=== PATIENT | male | born 1940 | race Caucasian/White ===

== ENCOUNTER 2018-03-03 00:06 | Inpatient (IN) | payer OTHER ==
[2018-03-03] VITALS (8 sets, daily range): BP systolic 121–151; BP diastolic 59–86
[~2018-03-03] VITALS: Ht 175.3 cm; Wt 96.2 kg
--- NOTE | ~2018-03-03 | EKG ---
[address] [address] ELECTROCARDIOGRAM REPORT Name: MILLICENT TREVIÑO Room #: 355-P ADM IN M.R.#: [id number] Admission: 03/03/18 Attend Phys: Mac Alexis DO Discharge: Date of : 40 Report #: [id number] THIS REPORT FOR: //name// [facility] ED Test Date: 2018-03-03 Test Time: 00:18:50 Pat Name: MILLICENT TREVIÑO Department: Room: [facility] Gender: M Ivory Polisher: JARETT : 1940 Requested By: Lindsey Gonzalez Order Number: [id number] MD: Demarco Page Measurements Intervals [place] Rate: 115 P: 1 [place]: 117 QRS: 50 QRSD: 98 T: -25 QT: 321 QTc: 444 Interpretive Statements Sinus tachycardia Probable left atrial enlargement Compared to ECG 07/23/2012 15:04:41 Sinus rhythm no longer present Electronically Signed On 03-03-2018 12:13:24 CDT by Demarco Page [email or web address] <ELECTRONICALLY SIGNED> By: Demarco Page MD 03/03/18 1213 0018 0018 Demarco Page MD /RICHY
--- NOTE | ~2018-03-03 | 2DMMODE ---
[facility] [address] [place] [place] [address] 2 D/M-MODE ECHOCARDIOGRAM Name: MILLICENT TREVIÑO Room #: 355-P [facility] IN ..#: [id number] Admission: 03/03/18 Attend Phys: Mac Alexis, Discharge: Date of : 40 Date of Service: 03/05/18 0950 Report #: [id number] THIS REPORT FOR: //name// APPROVED REPORT Study performed: 03/05/2018 08:05:40 EXAM: Comprehensive 2D, Doppler, and color-flow Echocardiogram Patient Location: Bedside Room #: 355 Status: routine BSA: 2.12 HR: 68 bpm BP: 134/62 mmHg Other Information Study Quality: Adequate Indications Diabetes Dizziness and Vertigo 2D Dimensions RVDd: 42.88 mm LVEF(%): 68.01 (>50%) IVSd: 14.81 (7-11mm) LVOT Diam: 23.42 (18-24mm) LVDd: 40.09 mm PWd: 14.91 (7-11mm) Ascending Ao: 35.11 (22-36mm) LVDs: 25.09 (25-40mm) Aortic Root: 31.23 mm IVC: 16.00 mm Boothe's LVEF: 68.01 % Volumes Left Atrial Volume (Systole) Single Plane 4CH: 60.69 mL Single Plane 2CH: 76.53 mL LA ESV Index: 36.00 mL/m2 Aortic Valve AoV Peak Gil.: 2.83 m/s AO Peak Gr.: 32.00 mmHg LVOT Max P.98 mmHg AO Mean Gr.: 17.65 mmHg LVOT Mean P.72 mmHg AO V2 Mean: 1.96 m/s LVOT Max V: 1.22 m/s AO V2 VTI: 67.08 cm LVOT Mean V: 0.75 m/s SHAUNA (VTI): 1.94 cm2 LVOT V1 VTI: 30.16 cm SHAUNA Vmax: 1.86 cm2 AI Vmax: 3.71 m/s SV (LVOT): 129.88 mL [facility] [place] [address] 2 D/M-MODE ECHOCARDIOGRAM Name: MILLICENT TREVIÑO Room #: 355-P [facility] IN [facility]#: [id number] Admission: 03/03/18 Attend Phys: Mac Alexis, Discharge: Date of : 40 Date of Service: 03/05/18 0950 Report #: [id number] AI Grimes: 2.69 m/s2 AI PHT: 399.99 ms Mitral Valve E/A Ratio: 0.8 MV Decel. Time: 207.90 ms MV E Max Gil.: 0.63 m/s MV A Gil.: 0.79 m/s MV PHT: 60.29 ms IVRT: 103.81 ms Pulmonary Valve PV Peak Gil.: 0.95 m/s PV Peak Gr.: 3.60 mmHg Pulmonary Vein P Vein S: 0.63 m/s P Vein A: 0.30 m/s P Vein D: 0.39 m/s P Vein A Dur.: 124.6 msec P Vein S/D Ratio: 1.62 Tricuspid Valve TR Peak Gil.: 2.48 m/s RAP Estimate: 5.00 mmHg TR Peak Gr.: 24.52 mmHg PA Pressure: 30.00 mmHg Left Ventricle The left ventricle is normal size. There is normal LV segmental wall motion. Mild to moderate concentric left ventricular hypertrophy. The left ventricular systolic function is normal. The left ventricular ejection fraction is within the normal range. LVEF is 60-65%. Mild diastolic dysfunction is present (impaired relaxation pattern). Right Ventricle The right ventricle is normal size. The right ventricular systolic function is normal. Atria The left atrium size is normal. The right atrium size is normal. Aortic Valve Aortic valve is mildly calcified, trileaflet, mildly stenotic Trace to mild aortic regurgitation. There is mild valvular aortic stenosis. Calculated aortic valve area is 1.9 cm2 with maximum pressure gradient of 32 mmHg and mean pressure gradient of 18 [place] [address] 2 D/M-MODE ECHOCARDIOGRAM Name: MILLICENT TREVIÑO Room #: 355-P [facility] IN ..#: [id number] Admission: 03/03/18 Attend Phys: Mac Alexis, Discharge: Date of : 40 Date of Service: 03/05/18 0950 Report #: [id number] Mitral Valve The mitral valve is normal in structure. Trace mitral regurgitation. No evidence of mitral valve stenosis. Tricuspid Valve The tricuspid valve is normal in structure. Trace tricuspid regurgitation. PAP is estimated at 30 mmHg. Pulmonic Valve The pulmonary valve is normal in structure. Trace pulmonic regurgitation. Great Vessels The aortic root is normal in size. IVC is normal in size and collapses >50% with inspiration. Pericardium There is no pericardial effusion. <Conclusion> The left ventricular systolic function is normal. LVEF is 60-65%. Mild diastolic dysfunction is present (impaired relaxation pattern). Aortic valve is mildly calcified, trileaflet, mildly stenotic. Mild insufficiency Calculated aortic valve area is 1.9 cm2 with maximum pressure gradient of 32 mmHg and mean pressure gradient of 18 mmHg. The mitral valve is normal in structure. Trace mitral regurgitation. Trace tricuspid regurgitation. Pulmonary artery pressure estimated at 30 mmHg. There is no pericardial effusion. <ELECTRONICALLY SIGNED> By: Celestine Alicea MD, FACC 03/05/1850 9 9 Celestine Alicea MD, FACC /INF
--- NOTE | ~2018-03-03 | HC ---
[facility] [place] [address] CONSULTATION Name: DOMINIQUERASHELMILLICENT Damon Room #: 355-P ADM IN M.R.#: [id number] Admission: 03/03/18 Attend Phys: Mac Alexis DO Discharge: Date of : 40 Report #: [id number] THIS REPORT FOR: //name// CC: Mac Murillo DATE OF SERVICE: 03/05/2018 ATTENDING PHYSICIAN: Etienne Blankenship MD CONSULTATION REQUESTED BY: Demarco Page MD REASON FOR CONSULTATION: Pneumonia, antibiotic management. HISTORY OF PRESENT ILLNESS: A 78-year-old man admitted with lightheadedness and near syncope as well as some episode of coughing. The patient has been evaluated previously by Dr. Derek Mac and he had received treatment with levalbuterol, which causes him to become rather jittery and the jitteriness persisted longer than most times this particular admission. During that initial evaluation, found to have some left basilar changes, possible pneumonia. He was treated with Zithromax, Rocephin. He denies having had fevers, occasionally producing some sputum. PAST MEDICAL HISTORY: Diabetes mellitus. Chronic cough for which he uses inhalation treatments. He is on Dulera (mometasone-formoterol) . There is a history of palpitation. SOCIAL HISTORY: Used to work for [employer] . Grown children. REVIEW OF SYSTEMS: Jitteriness, some coughing. Near syncope. No fevers. No aches or pains. MEDICATIONS: Include Rocephin 1 gram IV daily, Zithromax 500 mg daily, methylprednisolone 62.5 mg IV daily, hydrocodone and chlorpheniramine 5 mL every 12 hours if needed, metformin 500 b.i.d., levalbuterol inhalation treatment every 4 hours, pantoprazole, insulin lispro per sliding scale, p.r.n. glucose glucagon, p.r.n. ondansetron. PHYSICAL EXAMINATION: GENERAL: A well-developed man, not toxic looking, no distress. VITAL SIGNS: Afebrile since admission, temperature 97.5, pulse 73, respirations 21, BP 175/81. HEENMT: Within range. NECK: Supple, no thyromegaly. LYMPH NODE: Negative. LUNGS: Clear. [address] [place] [address] CONSULTATION Name: KAMILAMILLICENT Damon Room #: 355-P [facility] IN M.R.#: [id number] Admission: 03/03/18 Attend Phys: Mac Alexis DO Discharge: Date of : 40 Report #: [id number] HEART: S1, S2. No gallop. There is a murmur over the aortic focus compatible with aortic stenosis and possible regurgitation. ABDOMEN: Soft, no masses or megaly. There is umbilical hernia that is asymptomatic. GENITALIA AND RECTAL: Deferred. EXTREMITIES: No clubbing, cyanosis. LABORATORY DATA: Chemistry has revealed hyperglycemia as high as 192 mg/dL and a BUN of 21 mg/dL that improved after initial testing. Troponin normal. ESR and CRP pending. WBC on admission 17,700, yesterday is 11,900; hemoglobin drops from 14.9 to 13.8 g/dL and the platelets are normal. White blood cell count on admission revealed 89% segmented neutrophils. TSH mildly elevated at 4.6. Urinalysis with trace glucose. Sputum revealed few wbc's, mixed jose. Blood cultures negative. RADIOLOGY EVALUATION: A chest x-ray review on 03/03 revealed some right and left basilar changes that definitely are improved on repeat chest x-ray today. Echocardiogram has revealed some mild aortic sclerosis, stenosis and regurgitation. ASSESSMENT: 1. Possible pneumonia--bronchitis, improved. 2. Near syncope. 3. Leukocytosis, improved. 4. Diabetes mellitus. SUGGESTIONS: Obviously, this patient's leukocytosis and pulmonary infiltrates have improved and cultures remain negative consequently we will change Zithromax to by mouth. We will continue Rocephin today. ESR and CRP not significantly elevated. We will discontinue IV antibiotic and complete treatment with oral Zithromax for a few days. Dr. Demarco Page and Dr. Blankenship, thank you for requesting my suggestions. <ELECTRONICALLY SIGNED> By: Nile Page MD 03/06/18 0905 1312 1752 Nile Page MD /nt
[~2018-03-03 00:06] MED LIST: ADULT LOW DOSE81 MG PO; ADVAIRDISKUS; AUGMENTIN 875-1 EACH PO; AUGMENTIN 875875 M1 PO; DULERA 100 MCG/13 GM IH; GLUCOPHAGE500 MG PO; MINIPRIN81 MG PO; MULTIVITAMINS PO; NASONEX17 GM; NEXIUM40 MG PO; PREDNISONE 10 M10 MG PO; PREDNISONE 20 M20 M1 PO; VENTOLIN17 GM; XOPENEX1.25 MG/3; ZPAK PO; ZYRTEC10 M2 PO; [UNRECOGNIZED DRUG - OTHER]
[2018-03-03 00:52] LABS: ABSOLUTE NEUTROPHILS 15.8 thou/uL (1.4-8.2); BASOPHILS 0.6 % (0.0-2.0); EOSINOPHILS 0.3 % (0.0-3.0); HEMATOCRIT 44.8 % (42.0-52.0); HEMOGLOBIN 14.9 gm/dL (14.0-18.0); MCH 28.1 pg (26.0-34.0); MCHC 33.3 g/dL (28.0-37.0); MCV 84.2 fL (80.0-100.0); MONOCYTES 6.1 % (1.0-8.0); PLATELET COUNT 272 thou/uL (150-400); RBC 5.32 mil/uL (4.50-6.00); RDW 14.3 % (10.5-14.5); WBC 17.7 thou/uL (4.0-11.0)
[2018-03-03 00:59] LABS: ANION GAP 10 mmol/L (7-16); BUN 21 mg/dL (7-18); CALCIUM 9.6 mg/dL (8.5-10.1); CHLORIDE 102 mmol/L (98-107); CO2 26 mmol/L (21-32); CREATININE 1.3 mg/dL (0.7-1.3); GLUCOSE 192 mg/dL (74-106); POTASSIUM 4.2 mmol/L (3.5-5.1); SODIUM 138 mmol/L (136-145)
[2018-03-03 01:09] LABS: TROPONIN-I < 0.04 ng/mL (<0.06)
[2018-03-03] MEDS ORDERED: CALCIUM 500 +1 EAC5 PO (03:41)
[2018-03-03] MEDS ORDERED: VITAMINC500 PO (03:42)
[2018-03-03] MEDS ORDERED: MEGA RED PO (03:44)
[2018-03-03] MEDS ORDERED: CETIRIZINE HCL5 MG PO (03:47)
[2018-03-03] MEDS ORDERED: LEVALBUTER1.25 MG/0. INH (03:54)
[2018-03-03] MEDS ORDERED: MUCINEX D TABL1 EACH PO (04:16)
[2018-03-03 05:43] LABS: URINE BILIRUBIN NEGATIVE (Negative); URINE BLOOD NEGATIVE (Negative); URINE CLARITY CLEAR; URINE COLOR YELLOW; URINE GLUCOSE-RANDOM* TRACE (Negative); URINE KETONES NEGATIVE (Negative); URINE LEUKOCYTES-REFLEX NEGATIVE (Negative); URINE NITRITE-REFLEX NEGATIVE (Negative); URINE PROTEIN (DIPSTICK) NEGATIVE (Negative); URINE UROBILINOGEN 0.2 E.U./dl (0.2-1.0)
[2018-03-04 03:49] VITALS: BP 149/74
[2018-03-04 05:46] LABS: HEMATOCRIT 40.3 % (42.0-52.0); HEMOGLOBIN 13.8 gm/dL (14.0-18.0); MCH 28.9 pg (26.0-34.0); MCHC 34.2 g/dL (28.0-37.0); MCV 84.4 fL (80.0-100.0); RBC 4.77 mil/uL (4.50-6.00); RDW 14.3 % (10.5-14.5); WBC 11.9 thou/uL (4.0-11.0)
[2018-03-04 07:46] VITALS: BP 136/75
[2018-03-04 11:38] VITALS: BP 135/73
[2018-03-04 15:44] VITALS: BP 168/96
[2018-03-04 20:00] VITALS: BP 159/63
[2018-03-05 00:30] VITALS: BP 133/65
[2018-03-05 04:34] VITALS: BP 134/62
[2018-03-05 09:04] VITALS: BP 175/81
[2018-03-05 14:02] LABS: ALBUMIN 3.4 g/dL (3.4-5.0); CALCIUM 9.1 mg/dL (8.5-10.1); CREATININE 1.1 mg/dL (0.7-1.3); POTASSIUM 3.6 mmol/L (3.5-5.1); TOTAL BILIRUBIN 0.5 mg/dL (<0.1-1.0); TOTAL PROTEIN 7.2 g/dL (6.4-8.2)
[2018-03-05 16:20] VITALS: BP 155/57
[2018-03-05 20:00] VITALS: BP 152/66
[2018-03-06 04:00] VITALS: BP 136/71
[2018-03-06 07:30] VITALS: BP 152/72
[2018-03-06] MEDS ORDERED: AZITHROMYCIN 2250 MG PO (08:12)
[2018-03-06] MEDS ORDERED: CEFDINIR300 MG PO (08:12)
[2018-03-06 11:32] VITALS: BP 145/66
[2018-03-06 17:11] VITALS: BP 161/72
[2018-03-06 19:31] VITALS: BP 140/72
[2018-03-07 03:19] VITALS: BP 157/89
[2018-03-07 07:30] VITALS: BP 170/91
[2018-03-07 10:55] VITALS: BP 155/81
[2018-03-07] MEDS ORDERED: LISINOPRIL5 MG PO (11:31)
[2018-03-07] MEDS ORDERED: CEFUROXIME500 MG PO (11:31)
[2018-03-07] MEDS ORDERED: TAMBOCOR 100 M100 M1 PO (12:28)
[2018-03-07] MEDS ORDERED: CARTIA XT120 M1 PO (12:30)
[2018-03-07 12:54] VITALS: BP 155/81
== END 2018-03-07 13:40 | disposition home or self-care (01) | DRG 871 ==
LOC: ER 00:06 → EROBS 02:41 → 3W 02:41 → ENTRNSPT 03-07 13:26 → EDTRNSPTSTS 03-07 13:30 → 3W 03-07 13:40
PROVIDERS: Emergency Medicine; Nurse Practitioner Family; Registered Nurse
PROC: B24BZZ4 Ultrasonography of Heart with Aorta, Transesophageal (ICD-10-PCS; principal; 2018-03-05)
DX: A41.9 Sepsis, unspecified organism (principal); J13 Pneumonia due to Streptococcus pneumoniae; I47.1 Supraventricular tachycardia; I35.0 Nonrheumatic aortic (valve) stenosis; E11.9 Type 2 diabetes mellitus without complications; K21.9 Gastro-esophageal reflux disease without esophagitis; Z79.84 Long term (current) use of oral hypoglycemic drugs; Z79.899 Other long term (current) drug therapy; Z88.1 Allergy status to other antibiotic agents; Z82.49 Family history of ischemic heart disease and other diseases of the circulatory system
CPT/HCPCS: 10879

== ENCOUNTER → 2018-07-16 | Outpatient (CLI) | payer OTHER ==
[~2018-07-16] MED LIST changes: +AZITHROMYCIN 2250 MG PO; +CALCIUM 500 +1 EAC5 PO; +CARTIA XT120 M1 PO; +CEFDINIR300 MG PO; +CEFUROXIME500 MG PO; +CETIRIZINE HCL5 MG PO; +LEVALBUTER1.25 MG/0. INH; +LISINOPRIL5 MG PO; +MEGA RED PO; +MUCINEX D TABL1 EACH PO; +TAMBOCOR 100 M100 M1 PO; +VITAMINC500 PO
== END ==
LOC: RAD 09:35
DX: J98.4 Other disorders of lung (principal); K21.9 Gastro-esophageal reflux disease without esophagitis

== ENCOUNTER → 2019-01-21 | Outpatient (CLI) | payer OTHER | LOC: ULTRA 15:02 | DX: I65.23 Occlusion and stenosis of bilateral carotid arteries (principal) ==

== ENCOUNTER → 2019-05-22 | Outpatient (CLI) | payer OTHER ==
--- NOTE | 2019-05-22 14:33 | 2DMMODE ---
[facility] [place] [address] 2 D/M-MODE ECHOCARDIOGRAM Name: MILLICENT TREVIÑO Room #: REG [facility]#: [id number] ������������� Admission: 05/22/19 ������������� Attend Phys: Demarco Page Discharge: ��� ������������� ��� Date of : 40 Date of Service: 05/22/19 1433 �� Report #: [id number] �������� ��������������������������������������������[id number] THIS REPORT FOR: //name// APPROVED REPORT Study performed: 05/22/2019 12:55:10 EXAM: Comprehensive 2D, Doppler, and color-flow Echocardiogram Patient Location: Out-Patient Room #: Echo lab 2 Status: routine BSA: 1.98 HR: 61 bpm BP: 124/68 mmHg Rhythm: NSR Other Information Study Quality: Good Indications SVT 2D Dimensions RVDd: 29.99 mm IVSd: 10.86 (7-11mm) LVOT Diam: 19.83 (18-24mm) LVDd: 40.88 mm PWd: 10.88 (7-11mm) Ascending Ao: 32.21 (22-36mm) LVDs: 28.59 (25-40mm) Aortic Root: 33.43 mm IVC: 25.00 mm Volumes Left Atrial Volume (Systole) Single Plane 4CH: 56.83 mL Single Plane 2CH: 50.43 mL LA ESV Index: 29.00 mL/m2 Aortic Valve AoV Peak Gil.: 2.81 m/s AO Peak Gr.: 31.61 mmHg LVOT Max P.98 mmHg AO Mean Gr.: 17.39 mmHg LVOT Mean P.06 mmHg AO V2 Mean: 1.91 m/s LVOT Max V: 1.00 m/s AO V2 VTI: 69.43 cm LVOT Mean V: 0.65 m/s SHAUNA (VTI): 1.09 cm2 LVOT V1 VTI: 24.45 cm SHAUNA Vmax: 1.09 cm2 SV (LVOT): 75.45 mL [facility] [place] [address] 2 D/M-MODE ECHOCARDIOGRAM Name: MILLICENT TREVIÑO Room #: [facility]#: [id number] ������������� Admission: 05/22/19 ������������� Attend Phys: Demarco Page Discharge: ��� ������������� ��� Date of : 40 Date of Service: 05/22/19 1433 �� Report #: [id number] �������� ��������������������������������������������[id number] Mitral Valve E/A Ratio: 1.2 MV Decel. Time: 146.94 ms MV E Max Gil.: 0.81 m/s MV A Gil.: 0.70 m/s MV PHT: 42.61 ms IVRT: 78.43 ms Pulmonary Valve PV Peak Gil.: 0.90 m/s PV Peak Gr.: 3.26 mmHg Pulmonary Vein P Vein S: 0.50 m/s P Vein A: 0.27 m/s P Vein D: 0.32 m/s P Vein A Dur.: 96.9 msec P Vein S/D Ratio: 1.56 Tricuspid Valve TR Peak Gil.: 2.70 m/s TR Peak Gr.: 29.21 mmHg PA Pressure: 39.00 mmHg Left Ventricle The left ventricle is normal size. There is normal LV segmental wall motion. There is normal left ventricular wall thickness. The left ventricular systolic function is normal. The left ventricular ejection fraction is within the normal range. LVEF is 55-60%. The left ventricular diastolic function is normal. Right Ventricle The right ventricle is normal size. The right ventricular systolic function is normal. Atria The left atrium size is normal. Right atrium is at the upper limits of normal. Aortic Valve The aortic valve is normal in structure, calcifications noted Trace aortic regurgitation. Moderate aortic stenosis. Mitral Valve The mitral valve is normal in structure. Mild mitral regurgitation. No evidence of mitral valve stenosis. Tricuspid Valve The tricuspid valve is normal in structure. [place] [address] 2 D/M-MODE ECHOCARDIOGRAM Name: MILLICENT TREVIÑO Room #: REG [facility].#: [id number] ������������� Admission: 05/22/19 ������������� Attend Phys: Demarco Page Discharge: ��� ������������� ��� Date of : 40 Date of Service: 05/22/19 1433 �� Report #: [id number] �������� ��������������������������������������������[id number] regurgitation. Estimated PAP 39 mmHg. There is mild pulmonary hypertension. Pulmonic Valve The pulmonary valve is normal in structure. Trace pulmonic regurgitation. Great Vessels The aortic root is normal in size. IVC is dilated and collapses >50% with inspiration. Pericardium There is no pericardial effusion. <Conclusion> The left ventricle is normal size. LVEF is 55-60%. The aortic valve is normal in structure, calcifications noted Trace aortic regurgitation. Moderate aortic stenosis. The mitral valve is normal in structure. Mild mitral regurgitation. The tricuspid valve is normal in structure. There is trace tricuspid regurgitation. Estimated PAP 39 mmHg. There is mild pulmonary hypertension. The pulmonary valve is normal in structure. Trace pulmonic regurgitation. There is no pericardial effusion. ��������������������������������������������� <ELECTRONICALLY SIGNED> ���������������������������������������� By: David Davalos MD ��������������������������������������������� 05/22/19 1433 1433 1433 David Davalos MD /INF
== END ==
LOC: CV 12:06
DX: I08.0 Rheumatic disorders of both mitral and aortic valves (principal); I10 Essential (primary) hypertension

== ENCOUNTER 2019-05-28 14:13 | Inpatient (IN) | payer OTHER ==
[~2019-05-28] VITALS: Ht 175.3 cm; Wt 85.7 kg
--- NOTE | ~2019-05-28 | P ---
[facility] [place] [address] PROCEDURE REPORT Name: MILLICENT TREVIÑO Room #: 349-I ADM IN M.R.#: [id number] Admission: 05/28/19 ������������������ Attend Phys: Alysha Gilmore MD Discharge: ������������������ Date of : 40 Report #: [id number] THIS REPORT FOR: //name// CC: Martin Gilmore PROCEDURE: Implantable loop recorder insertion. PREOPERATIVE DIAGNOSIS: Syncope. POSTOPERATIVE DIAGNOSIS: Syncope. DESCRIPTION OF PROCEDURE: The patient underwent informed consent. We discussed the details of the procedure including the risks, which include but not limited to bleeding and infection. He understood these risks and was willing to proceed. As such, he was prepped in a sterile fashion. I injected 20 mL of lidocaine at the incision site. Incision was made. The device was injected into the skin and a single layer of suture was performed. Surgical glue was placed to the outer skin layer and a dressing was applied. There were no procedure related complications and no significant bleeding. The implanted device was a [employer] Confirm model #[id number], serial #[id number]. CONCLUSIONS: Successful implantation of an implantable loop recorder. ��������������������������������������������� ���������������������������������������� By: ��������������������������������������������� 1413 1459 Demarco Page MD /nt
[2019-05-28 14:14] VITALS: BP 141/69
[2019-05-28 14:32] LABS: ABSOLUTE NEUTROPHILS 14.4 thou/uL (1.4-8.2); BASOPHILS 0.3 % (0.0-2.0); EOSINOPHILS 0.4 % (0.0-3.0); HEMATOCRIT 39.2 % (42.0-52.0); HEMOGLOBIN 13.1 gm/dL (14.0-18.0); LYMPHOCYTES 5.9 % (24.0-44.0); MCHC 33.4 g/dL (28.0-37.0); MCV 86.7 fL (80.0-100.0); MONOCYTES 5.3 % (1.0-8.0); PLATELET COUNT 295 thou/uL (150-400); POLYS 88.1 % (36.0-66.0); RBC 4.52 mil/uL (4.50-6.00); RDW 13.9 % (10.5-14.5); WBC 16.4 thou/uL (4.0-11.0)
[2019-05-28 14:42] LABS: ANION GAP 12 mmol/L (7-16); BUN 28 mg/dL (7-18); CALCIUM 9.1 mg/dL (8.5-10.1); CHLORIDE 106 mmol/L (98-107); CO2 26 mmol/L (21-32); CREATININE 1.5 mg/dL (0.7-1.3); GLUCOSE 146 mg/dL (74-106); POTASSIUM 4.5 mmol/L (3.5-5.1); SODIUM 144 mmol/L (136-145)
[2019-05-28 14:50] LABS: TROPONIN-I <0.06 ng/mL (<0.06)
[2019-05-28] MEDS ORDERED: TUMERIC PO (14:53)
[2019-05-28] MEDS ORDERED: PROBIOTIC1 EAC1 PO (14:53)
[2019-05-28] MEDS ORDERED: ASPIR 8181 MG PO (14:53)
[2019-05-28 16:19] LABS: BE(vivo) -1.3 mmol/L (-2 to +3); HCO3 20.9 mmol/L (22.0-26.0); PCO2 28.3 mmHg (35.0-45.0); PO2 86.9 mmHg (80.0-100.0); pH 7.486 (7.360-7.450); sO2 97.3 % (92.0-98.0)
--- NOTE | 2019-05-28 16:32 | EKG ---
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: [facility] : 1940 Requested By: Balaji Alejandro Order Number: [id number] MD: Celestine Alicea Measurements Intervals [place] Rate: 84 P: -17 [place]: 168 QRS: 71 QRSD: 98 T: -17 QT: 382 QTc: 452 Interpretive Statements Sinus rhythm Atrial premature complexes Borderline T abnormalities, inferior leads Compared to ECG 03/03/2018 00:18:50 Atrial premature complex(es) now present Sinus tachycardia no longer present Electronically Signed On 05-28-2019 16:32:31 CDT by Celestine Alicea [email or web address] ��������������������������������������������� <ELECTRONICALLY SIGNED> ���������������������������������������� By: Celestine Alicea MD, [facility] ��������������������������������������������� 05/28/19 1632 142 142 Celestine Alicea MD, [facility] /EPI
[2019-05-28 18:36] VITALS: BP 138/72
[2019-05-28 18:56] LABS: URINE BILIRUBIN NEGATIVE (Negative); URINE BLOOD NEGATIVE (Negative); URINE CLARITY CLEAR; URINE COLOR YELLOW; URINE GLUCOSE-RANDOM* NEGATIVE (Negative); URINE KETONES 1+ (Negative); URINE LEUKOCYTES-REFLEX NEGATIVE (Negative); URINE NITRITE-REFLEX NEGATIVE (Negative); URINE PROTEIN (DIPSTICK) NEGATIVE (Negative); URINE UROBILINOGEN 0.2 E.U./dl (0.2-1.0)
[2019-05-28 19:04] VITALS: BP 123/61
[2019-05-28 19:14] LABS: AMP/METHAMP Negative (Negative); BARBITURATES Negative (Negative); BENZODIAZEPINES Negative (Negative); COCAINE Negative (Negative); METHADONE Negative (Negative); OPIATES Negative (Negative); PCP Negative (Negative)
[2019-05-28 19:25] VITALS: BP 143/75
[2019-05-28] MEDS ORDERED: ZESTRIL5 MG PO (21:18)
[2019-05-28] MEDS ORDERED: SAW PALMETTO450 MG PO (21:21)
[2019-05-28] MEDS ORDERED: FLOVENT HFA 4444 MCG INH (21:22)
[2019-05-28] MEDS ORDERED: TAMBOCOR 100 M100 M1 PO (21:32)
[2019-05-28 23:33] VITALS: BP 95/54
--- NOTE | 2019-05-29 03:10 | NUR ---
PATIENT IS ALERT AND ORIENTED. PATIENT IS SBA. PATIENTS BLOOD PRESSURE WAS STABLE. PATIENT IS HAS FLUIDS. PATIENT IS ON ROOM AIR. PATIENT ORTHOSTATICS WERE NEGATIVE. PATIENT IS NSR ON TELE. PATIENT IS ON CARB CONTROL DIET AT HOME DUE TO DM. PATIENT DENIES PAIN. PATIENT IS RESTING COMFORTABLY IN BED. WCM. PATIENT IS PROGRESSING TO GOALS.
[2019-05-29 04:20] VITALS: BP 143/73
[2019-05-29 05:54] LABS: HEMATOCRIT 36.9 % (42.0-52.0); HEMOGLOBIN 12.3 gm/dL (14.0-18.0); MCH 28.8 pg (26.0-34.0); MCHC 33.2 g/dL (28.0-37.0); MCV 86.8 fL (80.0-100.0); RBC 4.25 mil/uL (4.50-6.00); RDW 14.5 % (10.5-14.5); WBC 11.4 thou/uL (4.0-11.0)
[2019-05-29 06:05] LABS: CALCIUM 8.2 mg/dL (8.5-10.1); CREATININE 1.1 mg/dL (0.7-1.3); POTASSIUM 3.7 mmol/L (3.5-5.1)
[2019-05-29 07:12] VITALS: BP 118/61
--- NOTE | 2019-05-29 10:37 | NUR ---
Chart reviewed and case discussed with the care team. Pt likely dcing home today with his . Exterminator Helper Termite visited with the pt and his and son Bakari heck at bedside. He is a&ox4 and independent with gait and adl's. He drives and does his own yard work. He lives with his and has good family support. He denies any dc concerns. Outpt f/u anticipated. No cm interventions indicated.
[2019-05-29 16:30] VITALS: BP 134/77
--- NOTE | 2019-05-29 17:09 | NUR ---
AAOX4 VERY PLEASANT AND COOPERATIVE. IV RIGHT HAND WITH 0.45 NS AT 75/HR. GOOD APPETITE FOR HEART HEALTHY DIET. FAMILY IN ROOM. UP WITH PT AND NEEDS MOD ASSIST FOR RETROPULSION. SAT UP IN CHAIR FOR DINNER. VOIDS PER URINAL. DENIES PAIN. RESP EVEN ON ROOM AIR.
[2019-05-29 19:24] VITALS: BP 129/78
--- NOTE | 2019-05-30 04:12 | NUR ---
PATIENT IS ADVANCING IN HIS CARE PLAN. VITAL SIGNS STABLE WITH PATIENT HAVING NO COMPLAINTS OF NAUSEA. PATIENT DID COMPLAIN OF PAIN VIA HEADACHE WHICH WAS TREATED EFFECTIVELY WITH MEDICATION. FULLY ORIENTED, PATIENT IS ABLE TO PARTICIPATE IN CARE AND CALL APPROPRIATELY FOR NEEDS. PATIENT IS STILL DIZZY WHEN STANDING AND IS CONSIDERED A HIGH FALL RISK. PATIENT HAS BEEN ABLE TO TRANSFER FROM CHAIR TO BED WITH ASSISTANCE INCIDENT FREE. HE IS ANXIOUS FOR PROCEDURE LATER TODAY AND POSSIBLE DISCHARGE SOON. CONTINUE PLAN OF CARE.
[2019-05-30 07:59] VITALS: BP 148/72
[2019-05-30 08:01] VITALS: BP 154/77
[2019-05-30 08:03] VITALS: BP 148/75
--- NOTE | 2019-05-30 14:57 | NUR ---
DISCHARGE NOTE: SW reviewed chart and spoke with nursing and attending physician. Pt to have loop recorder today and will d/c home. No discharge needs identified at this time, but is available to assist should needs arise.
[2019-05-30 16:20] VITALS: BP 148/72
[2019-05-30] MEDS ORDERED: ANTIVERT25 MG PO (16:26)
[2019-05-30 16:29] VITALS: BP 148/72
[2019-05-30 16:35] VITALS: BP 148/72
--- NOTE | 2019-05-30 16:47 | NUR ---
PT PROGRESSING TOWARDS DISCHARGE GOALS..HE HAS WALKED IN HALLS X 2 WITH NO VERTIGO...IMPLANTED LOOP RECORDER PLACED THIS AFTERNOON..DISCHARGE INSTRUCRTIONS GIVEN...
== END 2019-05-30 17:59 | disposition home or self-care (01) | DRG 907 ==
LOC: ER 14:13 → EROBS 17:45 → 3W 17:45 → ENTRNSPT 05-30 17:45 → 3W 05-30 17:59
PROVIDERS: Emergency Medicine; ADMIT Internal Medicine
PROC: 0JH632Z Insertion of Monitoring Device into Chest Subcutaneous Tissue and Fascia, Percutaneous Approach (ICD-10-PCS; principal; 2019-05-28)
DX: T67.5XXA Heat exhaustion, unspecified, initial encounter (principal); N17.0 Acute kidney failure with tubular necrosis; I47.1 Supraventricular tachycardia; I38 Endocarditis, valve unspecified; K21.9 Gastro-esophageal reflux disease without esophagitis; E11.9 Type 2 diabetes mellitus without complications; I10 Essential (primary) hypertension; E86.0 Dehydration; E55.9 Vitamin D deficiency, unspecified; Z86.010 Personal history of colon polyps; Z88.1 Allergy status to other antibiotic agents; Z82.49 Family history of ischemic heart disease and other diseases of the circulatory system; Y93.89 Activity, other specified; Y92.096 Garden or yard of other non-institutional residence as the place of occurrence of the external cause; Y99.8 Other external cause status
CPT/HCPCS: 10879

== ENCOUNTER → 2019-06-19 | Outpatient (CLI) | payer OTHER ==
[~2019-06-19] MED LIST changes: +ANTIVERT25 MG PO; +ASPIR 8181 MG PO; +FLOVENT HFA 4444 MCG INH; +PROBIOTIC1 EAC1 PO; +SAW PALMETTO450 MG PO; +TUMERIC PO; +ZESTRIL5 MG PO
== END ==
LOC: NUC 08:16
DX: I47.1 Supraventricular tachycardia (principal); E78.5 Hyperlipidemia, unspecified; E11.9 Type 2 diabetes mellitus without complications; Z79.899 Other long term (current) drug therapy; Z88.8 Allergy status to other drugs, medicaments and biological substances

== ENCOUNTER 2019-08-08 08:48 | Outpatient (CLI) | payer OTHER ==
[2019-08-08] VITALS (9 sets, daily range): BP systolic 92–134; BP diastolic 48–73
[~2019-08-08] VITALS: Ht 175.3 cm; Wt 84.4 kg
[2019-08-08 09:33] LABS: BASOPHILS 1.7 % (0.0-2.0); EOSINOPHILS 3.8 % (0.0-3.0); HEMATOCRIT 45.2 % (42.0-52.0); HEMOGLOBIN 15.1 gm/dL (14.0-18.0); LYMPHOCYTES 21.5 % (24.0-44.0); MCH 28.9 pg (26.0-34.0); MCHC 33.5 g/dL (28.0-37.0); MCV 86.4 fL (80.0-100.0); MONOCYTES 9.9 % (1.0-8.0); PLATELET COUNT 368 thou/uL (150-400); POLYS 63.1 % (36.0-66.0); RBC 5.23 mil/uL (4.50-6.00); WBC 7.9 thou/uL (4.0-11.0)
[2019-08-08 09:38] LABS: CALCIUM 9.6 mg/dL (8.5-10.1); CREATININE 1.3 mg/dL (0.7-1.3); POTASSIUM 4.9 mmol/L (3.5-5.1)
[2019-08-08] MEDS ORDERED: CLARITIN10 MG PO (09:43)
[2019-08-08 09:44] LABS: ALBUMIN 4.1 g/dL (3.4-5.0); TOTAL BILIRUBIN 0.4 mg/dL (<0.1-1.0); TOTAL PROTEIN 7.4 g/dL (6.4-8.2)
[2019-08-08 10:13] LABS: APTT 28.2 Seconds (24.5-32.8); PROTIME 10.2 Seconds (9.3-11.4)
--- NOTE | 2019-08-08 16:56 | NUR ---
TO UNIT FROM CV LAB BY CART AT 1550. VSS. ST PER TELE. BOTH GROIN SITES CDI AND SOFT. DENIES PAIN. BOTH LEGS IMMOBILIZED. WILL START AMIODORONE DRIP ONCE PHARMACY SUPPLIES MED. CLOSE TO NURSES' STATION. WILL CONTINUE TO MONITOR CLOSELY.
[2019-08-09 00:07] VITALS: BP 82/36
[2019-08-09 01:28] VITALS: BP 112/60
[2019-08-09 03:16] VITALS: BP 108/51
--- NOTE | 2019-08-09 05:25 | NUR ---
ASSESSMENT DOCUMENTED.PT BEEN RESTING IN NO ACUTE DISTRESS.A/OX4.VSS.S/P ABLATION.SARAH GROIN DRESSING INTACT,NO HEMATOMA OR ACTIVE BLEEDING NOTED.UP WITH SBA,AMBULATED ON THE HALLWAYS.REMAINS ON AMIODARONE DRIP.TOLERATING.SINUS RHYTHM ON MONITOR WITH HR IN 90S.PT TO BE DISCHARGED TO HOME TODAY.
[2019-08-09 05:26] LABS: HEMATOCRIT 41.3 % (42.0-52.0); HEMOGLOBIN 13.9 gm/dL (14.0-18.0); MCH 29.2 pg (26.0-34.0); MCHC 33.6 g/dL (28.0-37.0); MCV 86.8 fL (80.0-100.0); RBC 4.76 mil/uL (4.50-6.00); RDW 14.1 % (10.5-14.5); WBC 10.4 thou/uL (4.0-11.0)
[2019-08-09 05:58] LABS: ANION GAP 10 mmol/L (7-16); BUN 25 mg/dL (7-18); CALCIUM 8.5 mg/dL (8.5-10.1); CHLORIDE 103 mmol/L (98-107); CO2 26 mmol/L (21-32); CREATININE 1.1 mg/dL (0.7-1.3); GLUCOSE 117 mg/dL (74-106); POTASSIUM 4.1 mmol/L (3.5-5.1); SODIUM 139 mmol/L (136-145)
[2019-08-09 07:40] VITALS: BP 126/76
[2019-08-09] MEDS ORDERED: PACERONE 200 M200 M1 PO (08:13)
--- NOTE | 2019-08-09 08:44 | NUR ---
PT IS A&0X4, DENIES ANY PAIN AT THIS TIME, WAS TOLD HE COULD BE D/C'D LATER THIS A.M. SPOUSE AT BEDSIDE, SLEPT HERE. CARDIAC MONITORED. AMIO GTT RUNNING . GOOD APPETITE. GOAL FOR TODAY IS TO GET HOME AND GO TO BED TO GET CAUGHT UP ON HIS SLEEP. ENCOURAGED BOTH TO USE CALL LIGHT FOR ANY NEEDS
[2019-08-09 10:11] LABS: ALBUMIN 3.5 g/dL (3.4-5.0); DIRECT BILIRUBIN < 0.1 mg/dL (<0.1-0.3); SGOT 15 U/L (15-37); SGPT 13 U/L (30-65); TOTAL BILIRUBIN 0.3 mg/dL (<0.1-1.0); TOTAL PROTEIN 6.6 g/dL (6.4-8.2)
[2019-08-09 11:46] VITALS: BP 126/76
--- NOTE | 2019-08-10 11:41 | EKG ---
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 : 1940 Requested By: Sonya Wynn Order Number: [id number] MD: Celestine Alicea Measurements Intervals [place] Rate: 94 P: -40 DC: 168 QRS: 44 QRSD: 93 T: -16 QT: 351 QTc: 439 Interpretive Statements Sinus rhythm Multiple ventricular premature complexes Compared to ECG 05/28/2019 14:23:10 Ventricular premature complex(es) now present Atrial premature complex(es) no longer present Electronically Signed On 08-10-2019 11:41:20 CDT by Celestine Alicea [email or web address] <ELECTRONICALLY SIGNED> By: Celestine Alicea MD, [facility] 08/10/19 1141 0722 Celestine Alicea MD, [facility] /EPI
--- NOTE | 2019-08-16 14:57 | P ---
[facility] [place] [address] PROCEDURE REPORT Name: MILLICENT TREVIÑO [id number] Admission: 08/08/19 Attend Phys: Demarco Page MD Discharge: 08/09/19 Date of : 40 Report #: [id number] THIS REPORT FOR: //name// CC: Demarco Murillo PREOPERATIVE DIAGNOSIS: Atrial tachycardia. POSTOPERATIVE DIAGNOSIS: Atrial tachycardia. PROCEDURES PERFORMED: 1. SVT ablation, CPT code 34011. 2. EP with left atrial pacing and recording, CPT code 42792. 3. Program stimulation and pacing after IV drug infusion, CPT code 34066. 4. 3D mapping, CPT code 21077. HISTORY OF PRESENT ILLNESS: The patient is a 79-year-old male with history of SVT who has been on antiarrhythmic drugs and has recently had a possible syncopal episode. We implanted a loop recorder. This shows frequent episodes of SVT. He also had some wide complex tachycardia that was nonsustained in nature. He has recently undergone an echo and nuclear stress test, both of which were within normal limits. He is here for EP study. ANESTHESIA: The patient underwent MAC anesthesia with no anesthesia related complications. DESCRIPTION OF PROCEDURE: The patient underwent informed consent. We discussed the details of the procedure including the risks, which include but not limited to bleeding, infection, vascular damage, cardiac perforation as well as stroke or SD. We also discussed that if we were to induce sustained ventricular tachycardia that we would consider ICD implantation at this time as well. He understood these risks and is willing to proceed. The patient was brought to the EP laboratory in a fasting and sedated state and prepped and draped in a sterile fashion. Even before initiation of the procedure, he was going into his atrial tachycardia. His rates would jump between 60 to around 100 beats per minute. In the right femoral vein, I placed an 8, 7 and 6-[place]izen [place] short sheath. In the left femoral vein, I placed a 6-[place]izen [place] short sheath using the modified Seldinger technique after administering lidocaine. Next, under fluoroscopy, I placed 3 quadripolar catheters at the HRA, His, RV position and a Decapolar catheter into the coronary sinus with ease. Next, a basic EP study was performed. At baseline, the patient was already in his atrial tachycardia with an atrial cycle length of 585 milliseconds, AL interval 165 milliseconds, QRS duration 90 milliseconds, QT interval 360 milliseconds, AH interval 100 milliseconds, HV interval 50 milliseconds. The P-wave morphology was notched in the inferior leads and this was distinct from the sinus P-wave mechanism which was also slower in the 60s. [facility] [address] [place] [address] PROCEDURE REPORT Name: MILLICENT TREVIÑO Room #: DEP [facility]INATA Archer#: [id number] Admission: 08/08/19 Attend Phys: Demarco Page MD Discharge: 08/09/19 Date of : 40 Report #: [id number] Therefore, I removed my HRA catheter and went up with a PentaRay and performed a voltage and activation map and this appeared to be arising from the right atrial appendage. Placing the PentaRay at this location resulted in termination, but just pacing at about 500 milliseconds for 3-5 beats would reinitiate this atrial tachycardia. Therefore, I went up with a 4 mm ablation catheter and finding the earliest spot ablation was performed. After about 5-10 seconds, the tachycardia terminated. However, this was easily re-inducible. I performed extensive ablation within and around the right atrial appendage, which would frequently result in termination. A few times it actually resulted in acceleration into atrial flutter that I was able to pace terminate. At one point, the tachycardia appeared to be more difficult to initiate; therefore, I initiated isoproterenol at 1 mcg per minute and this made the tachycardia more robust again. Again, extensive ablation was performed within the right atrial appendage and I could get this to terminate but it would easily be re-inducible. I decided to perform a basic EP study. AV block was noted at 350 milliseconds. Ventricular extrastimuli were delivered and ventricular ERP was noted at 230 milliseconds at [address] cycle length. I then performed ventricular stimulation at both 500 and 550 millisecond cycle lengths with extrastimuli and I could not induce any ventricular tachycardia. The isoproterenol was turned off and again additional ablation was performed within and around the right atrial appendage and although I could get it to terminate it was still easily inducible. This was at 50 booker and 55 degrees and I had good niño and attempts through all my lesions. I did do additional mapping and it clearly appeared to be arising from this location and I do not think that looking anywhere else are going transseptal was really necessary at this point. As such, the procedure was concluded at this point as I did not want to cause right atrial appendage perforation with additional ablation. As such, catheters and sheaths were pulled. Hemostasis was obtained and the patient awoke neurologically and hemodynamically intact. No complications and no significant bleeding. CONCLUSIONS: 1. Unsuccessful ablation of an atrial tachycardia, likely arising from the right atrial appendage. 2. Normal SA gelacio function. 3. Normal AV gelacio function. 4. Normal His-Purkinje function. 5. No inducible ventricular tachycardia with ventricular stimulation protocol. RECOMMENDATION: We will monitor the patient in the CCU overnight. We will [facility] [address] [place] [address] PROCEDURE REPORT Name: MILLICENT TREVIÑO Room #: DEP AMINATA Archer#: [id number] Admission: 08/08/19 Attend Phys: Demarco Page MD Discharge: 08/09/19 Date of : 40 Report #: [id number] transition from flecainide to amiodarone therapy and continue to monitor clinically. <ELECTRONICALLY SIGNED> By: Demarco Page MD 08/16/19 1457 [id number] Demarco Page MD /nt
--- NOTE | 2019-08-16 14:57 | D ---
[facility] [place] [address] DISCHARGE SUMMARY Name: MILLICENT TREVIÑO Room #: DEP [facility] Gianni#: [id number] Admission: 08/08/19 Attend Phys: Demarco Page MD Discharge: 08/09/19 Date of : 40 Report #: [id number] THIS REPORT FOR: //name// CC: Demarco [facility] DISCHARGE DIAGNOSES: 1. Atrial tachycardia. 2. Nonsustained ventricular tachycardia. HISTORY: The patient is a 79-year-old with history of SVT, likely atrial tachycardia who has been on antiarrhythmic drugs, recently had a syncopal episode, may be related to dehydration. I decided to implant a loop recorder in him. This shows that he is having increased episodes of SVT. He also had an episode of nonsustained VT. He underwent a nuclear stress test and echo, both of which were within normal limits. He is here for EP study, possible ablation and possible ICD implantation. During the procedure, he was noted to have an atrial tachycardia that appeared to be arising from the right atrial appendage that I could terminate, but was easily re-inducible despite aggressive ablation within the right atrial appendage. I could not completely eliminate this arrhythmia. Therefore, the procedure was concluded. I also tried to induce ventricular tachycardia and this was non-inducible. HOSPITAL COURSE: The patient was placed in the CCU overnight and did well. He denied any chest pain or shortness of breath. On the day of discharge, on telemetry, it looks like he is still in his atrial tachycardia at around 97 beats per minute. He has biphasic P waves in the inferior leads. He was placed on IV amiodarone, which he tolerated well. On the day of discharge, his exam was within normal limits. Heart was regular rate and rhythm. Lungs are clear to auscultation bilaterally. Abdomen is soft, nontender, and groins showed no significant bruising or hematoma. As such, he was deemed stable for discharge home. He will continue with aspirin therapy and his other home medications. He will stop his flecainide and we will place him on amiodarone 400 a day for a week and then decrease this to 200 mg a day. We will check liver, thyroid, and pulmonary function test as an outpatient. He will see my nurse practitioner in 2 weeks and me in 3 months. We will continue to monitor his arrhythmias on his [employer] implantable loop recorder. <ELECTRONICALLY SIGNED> By: Demarco Page MD 08/16/19 1457 [id number] Demarco Page MD /nt
== END 2019-08-09 12:44 | disposition home or self-care (01) ==
LOC: CATH 08:48 → 2N 15:56 → ENTRNSPT 08-09 12:37 → EDTRNSPTSTS 08-09 12:40 → CATH 08-09 12:44
PROVIDERS: Internal Medicine Cardiovascular Disease; Nurse Practitioner
DX: I47.1 Supraventricular tachycardia (principal); I10 Essential (primary) hypertension; E78.5 Hyperlipidemia, unspecified; K21.9 Gastro-esophageal reflux disease without esophagitis; E11.9 Type 2 diabetes mellitus without complications; Z82.49 Family history of ischemic heart disease and other diseases of the circulatory system; Z98.890 Other specified postprocedural states; Z79.899 Other long term (current) drug therapy; Z88.8 Allergy status to other drugs, medicaments and biological substances; Z79.82 Long term (current) use of aspirin; Z79.01 Long term (current) use of anticoagulants; Z87.01 Personal history of pneumonia (recurrent)
CPT/HCPCS: 10081; 62110; 62900; 70005

== ENCOUNTER → 2020-05-26 | Outpatient (CLI) | payer OTHER ==
[~2020-05-26] MED LIST changes: +CLARITIN10 MG PO; +PACERONE 200 M200 M1 PO
== END ==
LOC: SJCVC 11:27
PROVIDERS: ATTEND Internal Medicine Cardiovascular Disease
DX: I47.1 Supraventricular tachycardia (principal)

== ENCOUNTER → 2020-06-04 | Outpatient (CLI) | payer OTHER | LOC: SJCVC 14:17 | PROVIDERS: ATTEND Internal Medicine Cardiovascular Disease | DX: I45.10 Unspecified right bundle-branch block (principal); R94.31 Abnormal electrocardiogram [ECG] [EKG]; I47.1 Supraventricular tachycardia; I35.0 Nonrheumatic aortic (valve) stenosis; I47.2 Ventricular tachycardia; I10 Essential (primary) hypertension; E11.9 Type 2 diabetes mellitus without complications; E03.9 Hypothyroidism, unspecified; K21.9 Gastro-esophageal reflux disease without esophagitis; Z79.899 Other long term (current) drug therapy; Z79.84 Long term (current) use of oral hypoglycemic drugs ==

== ENCOUNTER → 2020-12-01 | Outpatient (CLI) | payer OTHER | LOC: LAB 08:01 | PROVIDERS: ATTEND Family Medicine | DX: U07.1 COVID-19 (principal) ==

== ENCOUNTER 2020-12-05 08:43 | Inpatient (IN) | payer OTHER ==
[~2020-12-05] VITALS: Ht 175.3 cm; Wt 93.9 kg
[2020-12-05 09:07] VITALS: BP 149/71
[2020-12-05 10:34] LABS: ABSOLUTE NEUTROPHILS 9.7 thou/uL (1.4-8.2); BASOPHILS 0.4 % (0.0-2.0); EOSINOPHILS 0.1 % (0.0-3.0); HEMATOCRIT 44.8 % (42.0-52.0); HEMOGLOBIN 14.6 gm/dL (14.0-18.0); LYMPHOCYTES 3.9 % (24.0-44.0); MCH 28.4 pg (26.0-34.0); MCHC 32.5 g/dL (28.0-37.0); MCV 87.3 fL (80.0-100.0); MONOCYTES 8.7 % (1.0-8.0); PLATELET COUNT 249 thou/uL (150-400); POLYS 86.9 % (36.0-66.0); RBC 5.13 mil/uL (4.50-6.00); RDW 15.3 % (10.5-14.5); WBC 11.2 thou/uL (4.0-11.0)
[2020-12-05 10:45] LABS: CALCIUM 9.4 mg/dL (8.5-10.1); CREATININE 1.1 mg/dL (0.7-1.3); POTASSIUM 4.7 mmol/L (3.5-5.1)
[2020-12-05 19:20] LABS: ALBUMIN 3.5 g/dL (3.4-5.0); DIRECT BILIRUBIN < 0.1 mg/dL (<0.1-0.2); SGOT 16 U/L (15-37); SGPT 25 U/L (30-65); TOTAL BILIRUBIN 0.4 mg/dL (0.2-1.0); TOTAL PROTEIN 7.4 g/dL (6.4-8.2)
[2020-12-05 20:30] VITALS: BP 125/52
--- NOTE | 2020-12-06 04:54 | HC ---
[facility] [place] [address] CONSULTATION Name: DOMINIQUERASHELMILLICENT Room #: 170-8 ADM IN M.R.#: [id number] Admission: 12/05/20 Attend Phys: Misael Andres Discharge: Date of : 40 Report #: [id number] THIS REPORT FOR: cc: Martin Murillo MD, Rene P. MD Barry, Joseph W. MD ~ DATE OF SERVICE: 12/05/2020 INFECTIOUS DISEASE CONSULTATION ATTENDING PHYSICIAN: Dr. Andres. REASON FOR EVALUATION: COVID-19, complicated by pneumonitis, hypoxemia. HISTORY OF PRESENT ILLNESS: Chart reviewed, patient examined. This is an 80-year-old gentleman with known history of hypertension, reflux, diabetes mellitus type 2, who presented to the Emergency Room after roughly 7-8 days of progressive dyspnea and cough. He had been evaluated as an outpatient and was confirmed to have positive COVID test on 12/01/2020 and to the fact that he was not improving in spite of therapy that was initiated including nebulizer. He noted the medicine made him quite jittery. He states his pulse ox has been borderline in the low 90s. He had been started on Zithromax. On evaluation in the Emergency Room, it was again confirmed coronavirus positive. He was found to have basilar infiltrate on the left side. Lactic acid is 1.9. He was afebrile. He is generally lucid, dosed with ceftriaxone and dexamethasone. ALLERGIES: LEVOFLOXACIN. CURRENT MEDICATIONS: Include amiodarone, aspirin, lisinopril, diltiazem CD, ceftriaxone, dexamethasone, metformin, insulin lispro, acetaminophen, zolpidem, ondansetron as needed. PAST MEDICAL HISTORY: As described above, diabetes mellitus type 2, history of Paget's disease, history of SVT, and reflux. SOCIAL HISTORY: Nonsmoker, no ethanol, no illicit drug use. FAMILY HISTORY: Noncontributory. REVIEW OF SYSTEMS: Otherwise, unremarkable. Denies any anorexia. No significant GI related complaints, although did have some nausea previously. PHYSICAL EXAMINATION: GENERAL: Appears somewhat chronically ill, undernourished. He is lucid, hdxe-lo-zwjevnor distress. [facility] [address] [place] [address] CONSULTATION Name: MILLICENT TREVIÑO Room #: 1708 [facility] IN ..#: [id number] Admission: 12/05/20 Attend Phys: Misael Andres Discharge: Date of : 40 Report #: [id number] VITAL SIGNS: Temperature 98.8, pulse 107, respirations 16, and blood pressure 149/71. SKIN: Warm, dry, no rashes. HEENT: Otherwise unremarkable. Normocephalic. Extraocular muscles are intact. NECK: Supple. LUNGS: Scattered bibasilar crackles, diminished breath sounds. HEART: Tachycardic, regular. I do not appreciate a murmur. ABDOMEN: Soft, nontender, nondistended. EXTREMITIES: No cyanosis. GENITOURINARY AND RECTAL: Deferred. LABORATORY DATA: Electrolytes: Sodium is 134, potassium 4.7, chloride 99, bicarbonate is 23, anion gap of 12, BUN and creatinine 19 and 1.1, and glucose of 159. CBC: White count 11.2, H and H 14.6 and 44.8, and platelets of 249. ASSESSMENT: COVID-19 infection, complicated by pneumonitis and hypoxemia. We will continue empiric therapy with ceftriaxone. It is reasonable to add __ therapy with Remdesivir and ivermectin and vitamins as well in addition to the corticosteroids. We will check some additional diagnostic tests as well. He remains somewhat tenuous, certainly at risk for further deterioration in his overall clinical status given his age and his underlying medical issues. Thank you. We will follow. <ELECTRONICALLY SIGNED> By: Rob Escobar MD 12/06/20 0454 [id number] Rob Escobar MD /nt
[2020-12-06 07:36] LABS: ALBUMIN 3.1 g/dL (3.4-5.0); CALCIUM 8.7 mg/dL (8.5-10.1); CREATININE 1.7 mg/dL (0.7-1.3); PHOSPHORUS 4.9 mg/dL (2.6-4.7); POTASSIUM 3.9 mmol/L (3.5-5.1)
[2020-12-06 14:25] VITALS: BP 124/76
[2020-12-07 05:04] LABS: ALBUMIN 2.9 g/dL (3.4-5.0); BUN 46 mg/dL (7-18); CHLORIDE 103 mmol/L (98-107); CREATININE 1.5 mg/dL (0.7-1.3); DIRECT BILIRUBIN < 0.1 mg/dL (<0.1-0.2); GLUCOSE 146 mg/dL (74-106); PHOSPHORUS 3.8 mg/dL (2.5-4.9); SGOT 19 U/L (15-37); SGPT 24 U/L (30-65); SODIUM 138 mmol/L (136-145); TOTAL BILIRUBIN 0.2 mg/dL (0.2-1.0); TOTAL PROTEIN 6.6 g/dL (6.4-8.2)
[2020-12-07 05:25] LABS: ANION GAP 12 mmol/L (7-16); CO2 23 mmol/L (21-32)
[2020-12-07 07:51] VITALS: BP 127/65
[2020-12-07] MEDS ORDERED: AMIODARONE HCL100 MG PO (11:40)
--- NOTE | 2020-12-07 13:50 | NUR ---
80 year old male who presents to ER with increasing dyspnea and cough after diagnosis of Covid on 12/01 outpatient ordered through his PCP. He states cough for 4-5 days. He states mild fever. Pt states was told on 12-03-20 his Covid test was +. The patient was admitted by Dr. Andres for COVID -19 Compilated pneumonitis, with hypoxemia diabetes mellitus/Paget's disease. The patient was discharged on 05-30-19 to home with no needs by case management and on 08-09-19 to home with no needs. The patient has been maintained on 2 Liters per NC. Per the record the next of kin and notification alliance party is the spouse Vivien Nieves and numbers listed at [phone] or [phone]. Also per the ED record the patient is listed as A&O x4. CM will follow for discharge needs.
[2020-12-07 16:33] VITALS: BP 128/62
[2020-12-07 19:42] VITALS: BP 143/68
[2020-12-07 23:01] VITALS: BP 133/73
[2020-12-08] VITALS (8 sets, daily range): BP systolic 141–181; BP diastolic 60–84
[2020-12-08 15:06] LABS: ALBUMIN 2.8 g/dL (3.4-5.0); ANION GAP 8 mmol/L (7-16); BUN 34 mg/dL (7-18); CALCIUM 8.5 mg/dL (8.5-10.1); CHLORIDE 105 mmol/L (98-107); CO2 27 mmol/L (21-32); CREATININE 1.3 mg/dL (0.7-1.3); DIRECT BILIRUBIN < 0.1 mg/dL (<0.1-0.2); GLUCOSE 246 mg/dL (74-106); PHOSPHORUS 2.8 mg/dL (2.6-4.7); POTASSIUM 4.3 mmol/L (3.5-5.1); SGOT 19 U/L (15-37); SGPT 22 U/L (16-63); SODIUM 140 mmol/L (136-145); TOTAL BILIRUBIN 0.2 mg/dL (0.2-1.0); TOTAL PROTEIN 6.3 g/dL (6.4-8.2)
--- NOTE | 2020-12-08 18:41 | NUR ---
PATIENT ADMITTED TO UNIT AT THIS TIME. ALERT ORIENTED X4. DENIES PAIN. IV IN PLACE. NO OBVIOUS DIFFICULTY NOTED. WILL CONT WITH PLAN OF CARE.
[2020-12-09] VITALS (7 sets, daily range): BP systolic 144–179; BP diastolic 73–83
[2020-12-09 04:16] LABS: ALBUMIN 2.7 g/dL (3.4-5.0); ANION GAP 9 mmol/L (7-16); BUN 29 mg/dL (7-18); CALCIUM 8.1 mg/dL (8.5-10.1); CHLORIDE 106 mmol/L (98-107); CO2 26 mmol/L (21-32); CREATININE 1.2 mg/dL (0.7-1.3); DIRECT BILIRUBIN < 0.1 mg/dL (<0.1-0.2); GLUCOSE 120 mg/dL (74-106); POTASSIUM 4.1 mmol/L (3.5-5.1); SGOT 17 U/L (15-37); SGPT 32 U/L (30-65); SODIUM 141 mmol/L (136-145); TOTAL BILIRUBIN 0.2 mg/dL (0.2-1.0)
--- NOTE | 2020-12-09 06:09 | NUR ---
Pt. stated he slept intermittently during the night in between coughing. Tolerating room air well with no respiratory distress. Denies being in pain. Cont. on enhanced precaution , afebrile. Up ad cesar in room with steady gait and aware to call staff if he needs assistance.
[2020-12-09] MEDS ORDERED: LEVOTHYROXINE50 MCG PO (09:08)
--- NOTE | 2020-12-09 14:30 | NUR ---
Pt INTERVIEWED AND P.T. EVAL DEFERRED AFTER SPEAKING W/PT AND PT'S RN. PT UP AD LESLI IN ROOM. AMB BACK AND FORTH IN ROOM 8 - 10 TIMES SEVERAL TIMES PER DAY. RN REPORTS O2 SATS RUNNING IN MID 90S ON ROOM AIR W/ACTIVITY. RN AND PT AGREE P.T. EVAL NOT NEEDED. PT PLANS TO D/C TO HOME WITH HIS WHO ALSO HAS COVID. NO STEPS TO NAVIGATE EXCEPT TO BASEMENT. PT HAS PULSE OXIMETER AT HOME. PT HOPES TO D/C TODAY OR TOMORROW.
--- NOTE | 2020-12-09 14:57 | NUR ---
INITIAL ASSESSMENT: SW reviewed chart and spoke with nursing and attending physician. Pt was admitted from home due to dyspnea. Pt placed in Enhaced Isolation due to COVID-19. Pt had first positive test as an outpatient on 12/01. Pt is afebrile and not requiring O2. Pt is on Remdesivir. Last dose to be given today. Anticipate discharge home tomorrow. SW spoke with pt via phone. Introduced role of SW. Pt is alert/orientated x 4. Pt reports he lives at home with his who is also COVID positive. Prior to admission, pt was independent with ADLs. No use of DME. No hx of services or post-acute placement. Pt's PCP is Dr. Murillo. Plan is for pt to discharge home when medically stable. Pt's family will provide transportation home. SW is following to assist as needed with discharge planning.
--- NOTE | 2020-12-09 19:04 | NUR ---
PATIENT NOW SLEEPING. HE IS ALERT ORIENTED X4. PLEASANT WITH CARES. DOES NOT SEEM TO BE IN PAIN. HE IS UP AD LESLI IN ROOM WITH NO DIFFICULTY AMBULATING.
[2020-12-10 05:04] VITALS: BP 149/75
--- NOTE | 2020-12-10 05:32 | NUR ---
Pt. stated he slept better. Completed remdesivir last night. Tolerating room air well with no respiratory distress. Afebrile. Progressing towards discharge goals.
--- NOTE | 2020-12-10 08:53 | NUR ---
Nutrition Note: Pt seen for LOS. Pt with good appetite, eating 100%. Wt gain of +5# noted from admit. No c/o GI distress, no PU noted. Pt remains low nutrition risk at present. RD will remain available.
[2020-12-10] MEDS ORDERED: PREDNISONE 20 M20 M1 PO (09:26)
[2020-12-10] MEDS ORDERED: CEFDINIR300 MG PO (09:26)
[2020-12-10] MEDS ORDERED: CARDIZEM CD120 MG PO (09:26)
--- NOTE | 2020-12-10 12:33 | NUR ---
DISCHARGE NOTE: SW reviewed chart and spoke with nursing and attending physician. Pt is medically stable for discharge home today. Pt had last does of Remdesivir last night. Pt's family to provide transportation home. No discharge needs identified at this time. SW is available to assist should needs arise.
[2020-12-10 12:47] VITALS: BP 149/75
== END 2020-12-10 13:43 | disposition home or self-care (01) | DRG 871 ==
LOC: ER 08:43 → 3W 13:39 → EROBS 13:39 → 3W 12-08 18:30
PROVIDERS: Emergency Medicine; Hospitalist; Specialist; ADMIT Hospitalist; ATTEND Hospitalist
PROC: XW033E5 Introduction of Remdesivir Anti-infective into Peripheral Vein, Percutaneous Approach, New Technology Group 5 (ICD-10-PCS; principal; 2020-12-05)
DX: A41.89 Other specified sepsis (principal); U07.1 COVID-19; J96.01 Acute respiratory failure with hypoxia; J12.82 Pneumonia due to coronavirus disease 2019; N17.9 Acute kidney failure, unspecified; M88.9 Osteitis deformans of unspecified bone; K21.9 Gastro-esophageal reflux disease without esophagitis; I10 Essential (primary) hypertension; E11.9 Type 2 diabetes mellitus without complications; Z88.1 Allergy status to other antibiotic agents; Z79.82 Long term (current) use of aspirin; Z79.899 Other long term (current) drug therapy
CPT/HCPCS: 10080

== ENCOUNTER → 2020-12-29 | Outpatient (CLI) | payer OTHER ==
[~2020-12-29] MED LIST changes: +AMIODARONE HCL100 MG PO; +CARDIZEM CD120 MG PO; +LEVOTHYROXINE50 MCG PO
== END ==
LOC: SJCVC 14:56
PROVIDERS: ATTEND Internal Medicine Cardiovascular Disease
DX: I47.1 Supraventricular tachycardia (principal); R94.31 Abnormal electrocardiogram [ECG] [EKG]; I45.10 Unspecified right bundle-branch block; I10 Essential (primary) hypertension; K21.9 Gastro-esophageal reflux disease without esophagitis; E11.9 Type 2 diabetes mellitus without complications; Z98.890 Other specified postprocedural states; Z88.8 Allergy status to other drugs, medicaments and biological substances; Z79.84 Long term (current) use of oral hypoglycemic drugs; Z79.82 Long term (current) use of aspirin; Z79.899 Other long term (current) drug therapy; Z86.16 Personal history of COVID-19

== ENCOUNTER → 2021-02-22 | Outpatient (CLI) | payer OTHER | LOC: RAD 09:07 | PROVIDERS: ATTEND Nurse Practitioner | DX: R05 Cough (principal) ==

== ENCOUNTER → 2021-10-19 | Outpatient (CLI) | payer OTHER ==
[2021-10-19 08:11] VITALS: BP 168/80
--- NOTE | 2021-11-01 08:36 | P ---
[facility] [place] [address] PROCEDURE REPORT Name: BRANNONANDRZEJRASHELMILLICENT Room #: REG AMINATA NiYimiBabar.#: [id number] Admission: 10/19/21 Attend Phys: Demarco Page MD Discharge: Date of : 40 Report #: [id number] THIS REPORT FOR: cc: Martin Murillo MD, Rene P. MD Couchonnal, Luis F. MD ~ DATE OF SERVICE: 10/19/2021 PROCEDURE PERFORMED: 1. Explantation of a loop recorder. 2. Reimplantation of a loop recorder. PREOPERATIVE DIAGNOSIS: Atrial fibrillation. POSTOPERATIVE DIAGNOSIS: Atrial fibrillation. DESCRIPTION OF PROCEDURE: The patient underwent informed consent. He was brought to the procedure suite in a fasting and nonsedated state. I injected lidocaine at the prior incision site. Incision was made, the old device was removed and the new one was injected, tested and found to be functioning normally. The explanted device was a [employer] implantable loop recorder. The newly implanted device was a [employer] LINQ, serial number #[id number]. CONCLUSION: Successful explantation and reimplantation of a loop recorder. <ELECTRONICALLY SIGNED> By: Demarco Page MD 11/01/21 0836 [id number] Demarco Page MD /nt
== END | disposition home or self-care (01) ==
LOC: CATH 06:40
PROVIDERS: ATTEND Internal Medicine Cardiovascular Disease
DX: Z45.09 Encounter for adjustment and management of other cardiac device (principal); I48.91 Unspecified atrial fibrillation; Z79.899 Other long term (current) drug therapy; Z98.890 Other specified postprocedural states; Z79.01 Long term (current) use of anticoagulants; Z20.822 Contact with and (suspected) exposure to COVID-19; Z88.8 Allergy status to other drugs, medicaments and biological substances

== ENCOUNTER → 2022-01-04 | Outpatient (CLI) | payer OTHER | LOC: SJCVC 14:08 | PROVIDERS: ATTEND Internal Medicine Cardiovascular Disease | DX: I10 Essential (primary) hypertension (principal); K21.9 Gastro-esophageal reflux disease without esophagitis; E03.9 Hypothyroidism, unspecified; Z79.84 Long term (current) use of oral hypoglycemic drugs; Z88.8 Allergy status to other drugs, medicaments and biological substances; Z79.82 Long term (current) use of aspirin; Z79.899 Other long term (current) drug therapy ==